=== PATIENT | female | born 1960 | race Caucasian/White ===

== ENCOUNTER 2018-08-12 17:57 | Inpatient (IN) | payer OTHER ==
[~2018-08-12 17:57] MED LIST: ADULT ONE DAI200 MCG PO; ALDACTONE25 MG PO; AMBIEN 10 MG TA10 MG PO; AMBIEN 5 MG TABL5 M1 PO; ATIVAN1 MG PO; BACTRIM DS TAB1 EACH PO; CIPRO250 M1 PO; CYCLOBENZAPRINE5 MG PO; CYMBALTA20 MG PO; CYMBALTA30 MG PO; DAIRY DIGES3000 UNI1 PO; DESYREL100 MG PO; DESYREL300 MG PO; DESYREL50 MG PO; DILAUDID 2 MG TA2 MG PO; FLAGYL500 MG PO; FLEXERIL PO; FOLIC ACID 1 MG1 M1 PO; HYDROCODON-ACE1 EAC7 PO; HYDROXYZINE HCL50 MG PO; HYDROXYZINE PO; IRON325 PO; KEFLEX500 MG PO; KLOR-CON 10 ER10 MEQ PO; LAMICTAL 25 MG25 M1 PO; LASIX 40 MG TAB40 M1 PO; LASIX 40 MG TAB40 M2 PO; LASIX 80 MG TAB80 MG PO; LEVOTHYROXIN0.112 M1 PO; LEVOTHYROXIN0.175 MG PO; LEVOTHYROXINE 0.15MG PO; LEVOTHYROXINE0.2 M1 PO; LITHIUM CARBON300 M3 PO; LITHIUM CARBON600 MG PO; LORATIDINE 10 M10 M1 PO; LOXAPINE10 MG PO; LOXAPINE25 MG PO; LUNESTA3 MG PO; MIDODRINE HCL 55 M1 PO; MIRALAX17 GM PO; NAPROSYN500 MG PO; NEURONTIN 300300 M1 PO; NIGHTTIME SLEEP50 MG PO; NORCO 5-325 TA1 EACH PO; ONDANSETRON ODT4 MG PO; OXCARBAZEPINE600 MG PO; OXYCODONE HCL15 MG PO; OXYCODONE HCL30 MG PO; OXYCONTIN10 M1 PO; PERCOCET 10-321 EACH PO; PERCOCET 5-3251 EACH PO; PHENERGAN 25 MG25 M1 PO; PHENERGAN25 MG RECTAL; PRILOSEC 20 MG20 MG PO; PROZAC; PROZAC40 MG PO; REGLAN 10 MG TA10 MG PO; REMERON15 M1 PO; REMERON30 M1 PO; REMERON45 MG PO; RESTORIL30 MG PO; SEROQUEL 25 MG25 M1 PO; SEROQUEL 50 MG50 MG PO; SEROQUEL XR 30300 M1 PO; SYNTHROID200 MCG PO; VITAMIN B-1100 M1 PO; XANAX 0.5 MG0.5 MG PO; XANAX XR2 MG PO; XARELTO15 MG PO; ZOFRAN ODT4 MG PO; ZOFRAN4 MG PO; ZOLOFT100 MG PO; [UNRECOGNIZED DRUG - OTHER] PO
--- NOTE | 2018-08-12 19:27 | NUR ---
1820: Direct admit to room 522-B via [facility] accomp by EMT transporters. Pt alert, oriented to x4, appropritate for age. Pt describes having suicidal thoughts of stabbing herself in the stomach due to financial issues and not keeping her house clean. Dr. Diaz notified of admit, new orders rec. Dr. Acosta paged to notify of admission, no return call at this time. Consents signed and witnessed, inventory sheet completed, security here to store valuables. Report to noc shift.
[2018-08-12 20:07] VITALS: BP 113/70
[2018-08-13 01:00] VITALS: BP 113/70
--- NOTE | 2018-08-13 04:11 | NUR ---
ASSUMED CARE @ 19:15. ASSESSMENT COMPLETE. A&OX4, DENIES SI AND HI AT THIS TIME. HRRR, LUNGS CTA ALL MEZA. ALLERGIES TO CONTRAST DYE, IODINE, MORPHINE. MEDICATION ORDERS ENTERED, AND HS MEDS GIVEN @ 23:30. PT SAYS SHE WILL NOT BE ABLE TO SLEEP WITHOUT BELSOMRA SLEEPING AID. AGREED TO LAY IN BED WITH THE LIGHTS OUT AND RELAX, EVEN IF NOT ABLE TO SLEEP. NOTED TO BE SLEEPING THROUGHOUT THE NOC. WILL CONTINUE TO MONITOR.
--- NOTE | 2018-08-13 06:24 | NUR ---
SLEPT 5 HOURS OVER NOC.
[2018-08-13 07:20] VITALS: BP 99/50
--- NOTE | 2018-08-13 10:06 | NUR ---
0700-900: Report rec from noc shift, care assumed. Pt lethargic, voices mild nausea and dizziness VS= Laying in bed=99/50 HR=56, sitting= 110/60, HR=62, tkormqyn=339/68, HR=60, results reported to Namrata MONTANA who is here to do initial admission assessment. Labs, medications and symptoms rev with GETTER OPERATOR. Pt encouraged to amublate to DR, and request assist if dizzines continues, pt to DR for a.m. meal, refused meal, requires frequent reminders to drink fluids. ABT tx's, Keflex and Bactrim orders discussed with GETTER OPERATOR, Keflex dc'd, will continue with Bactrim for UTI, no adverse reactions noted. Pt attended a.m. group in DR, no interaction, slept at table during entire group.
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
[2018-08-13 19:40] VITALS: BP 121/66
--- NOTE | 2018-08-13 21:03 | NUR ---
ASSUMED CARE OF THE PT AT 1914 PM. ALERT ET ORIENTED X 3. MAKES NEEDS KNOWN. WALKS WITH A STEADY GAIT. RATES HER ANXIETY A 10/05 AND A 10/05. DENIES SI AND HI CURRENTLY. DENIES A/V HALLUNICATIONS. WATCHING TV AT THIS TIME. WALKS WITH A STEADY GAIT. REMAINS ON 12 MINUTE CHECKS FOR HER SAFETY.
--- NOTE | 2018-08-14 03:24 | NUR ---
THE PT HAS BEEN SLEEPING MOST OF THE NOC SHIFT. DENIED PAIN EARLIER IN THE SHIFT. REMAINS ON 12 MINUTE CHECKS FOR HER SAFETY.
[2018-08-14 07:30] VITALS: BP 115/63
--- NOTE | 2018-08-14 07:45 | NUR ---
PT STATED SHE FEELS BETTER TODAY. A LITTLE NAUSEA. PT STATED PAIN TO LOWER BACK IS 9 ON 1-10 SCALE. PT STATED IT IS TO LOWER BACK, STARTS FROM ONE SIDE TO ANOTHER. PT STATED IF FEELS LIKE AN ACHE, OR STIFF JOINTS. PT STATED SHE STILL FEELS DIZZY ALL THE TIME. SHE THINKS IT IS FROM THE MEDS. PT STATED LAST BM 4 DAYS AGO. ENCOURAGED PT TO EAT LIGHT FOOD TODAY.
[2018-08-14 08:00] VITALS: BP 115/63
--- NOTE | 2018-08-14 08:34 | NUR ---
ADM ZOFRAN 4MG PO FOR NAUSEA. DID EAT SOME EGGS AND FRUIT.
[2018-08-14 10:54] LABS: URINE BILIRUBIN NEGATIVE (Negative); URINE BLOOD NEGATIVE (Negative); URINE CLARITY CLEAR; URINE COLOR YELLOW; URINE GLUCOSE-RANDOM* NEGATIVE (Negative); URINE KETONES NEGATIVE (Negative); URINE LEUKOCYTES-REFLEX TRACE (Negative); URINE NITRITE-REFLEX NEGATIVE (Negative); URINE PROTEIN (DIPSTICK) NEGATIVE (Negative); URINE UROBILINOGEN 0.2 E.U./dl (0.2-1.0)
--- NOTE | 2018-08-14 13:39 | NUR ---
ADM OXI IR 30MG PO FOR BACK PAIN OF 9 ON 1-10 SCALE.
--- NOTE | 2018-08-14 14:12 | NUR ---
Sw and pt met during the group time, since no pt attended. Pt reported that she slept better last night, but still was having some stomach issues. Pt was more alert today and was feeling hopeful. Sw inquired about her plans for the [facility] and she stated she wanted to go on a roadtrip to [facility] wiht her .
--- NOTE | 2018-08-14 16:53 | NUR ---
ADM ZOFRAN 4MG PO FOR PRE-DINNER. PT HAS NOT HAD EMESIS TODAY. PT HAS BEEN ABLE TO EAT MEALS WITHOUT GETTING NAUSEATED. PT HAS RESTED IN CHAIR IN DINNING ROOM AFTER PAIN MED TODAY.
[2018-08-14 20:15] VITALS: BP 122/72
--- NOTE | 2018-08-14 22:38 | EKG ---
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1960 Requested By: Namrata Yo Order Number: [id number] MD: Shawn Umanzor Measurements Intervals [place] Rate: 49 P: 45 ID: 211 QRS: 1 QRSD: 105 T: 35 QT: 470 QTc: 425 Interpretive Statements Sinus bradycardia Compared to ECG 06/10/2015 13:30:16 Sinus rhythm no longer present First degree AV block no longer present T-wave abnormality no longer present Electronically Signed On 08-14-2018 22:37:56 CDT by Shawn Umanzor [email or web address] ��������������������������������������������� <ELECTRONICALLY SIGNED> ���������������������������������������� By: Shawn Umanzor MD ��������������������������������������������� 08/14/18 2237 Shawn Umanzor MD /BLAYNE
--- NOTE | 2018-08-14 23:15 | NUR ---
ASSUMED CARE @ 19:15. A&O X4, HRRR, LUNGS CTA ALL MEZA, ABD NX4Q. DENIES SI, OR HI, SMILES AT TIMES DURING ASSESSMENT, REPORTS BEING MORE HOPEFUL OF THE FUTURE, BUT AT TIMES A LITTLE BLUE AND SAD. REPORTS BEING WORRIED ABOUT MONEY TO PAY TAXES ON HER PAWAN HOW TO LOOSE 10 POUNDS, AND HOW BAD HER HOUSE KEEPING LOOKS. REQUESTED PRN MEDS FOR 9/10 BACK PAIN. WILL CONTINUE TO MONITOR.
--- NOTE | 2018-08-15 05:52 | NUR ---
SLEPT 9.4 HOURS.
--- NOTE | 2018-08-15 05:55 | NUR ---
SLEPT 9.4 HOURS NOC.
[2018-08-15 07:30] VITALS: BP 104/65
--- NOTE | 2018-08-15 10:14 | NUR ---
ASSUMED PATIENT CARE AT 07:15. PATIENT UP IN D.R. AT THAT TIME, SITTING AT TABLE. ATE 100% OF BREAKFAST. SAT IN R.T. GROUP, NON-PARTICIPATORY, DROWSY. C/O CONSTIPATION, TOOK MIRALAX. HOWEVER, STATES THAT MIRALAXN IS NOT WORKING. ADDED THAT SHE WAS TAKING COLACE WHILE IN THE HOSPITAL, NOTED THAT NO COLACE IS ORDERED AT THIS TIME. NURSE WILL F.U. BY REQESTING NEW ORDER FOR COLACE. PATIENT GIVEN 4 OZ OF PRUNE JUICE BY THIS NURSE.
[2018-08-15 10:38] VITALS: BP 104/65
[2018-08-15 11:11] LABS: ABSOLUTE NEUTROPHILS 4.5 thou/uL (1.4-8.2); BASOPHILS 0.9 % (0.0-2.0); EOSINOPHILS 4.2 % (0.0-3.0); HEMATOCRIT 33.5 % (37.0-47.0); HEMOGLOBIN 10.3 gm/dL (12.0-15.0); MCH 22.8 pg (26.0-34.0); MCHC 30.8 g/dL (28.0-37.0); MONOCYTES 9.6 % (1.0-8.0); PLATELET COUNT 194 thou/uL (150-400); POLYS 70.3 % (36.0-66.0); RBC 4.53 mil/uL (4.20-5.00); RDW 17.6 % (10.5-14.5); WBC 6.4 thou/uL (4.0-11.0)
--- NOTE | 2018-08-15 14:44 | NUR ---
MIHAI left a voicemail for pt . MIHAI provided contact information, and asked if he could return the call. MIHAI will follow-up with pt family tomorrow.
[2018-08-15 19:34] VITALS: BP 114/72
[2018-08-15 23:26] VITALS: BP 114/72
--- NOTE | 2018-08-16 04:56 | NUR ---
PT QUIET AND ON THE EDGE OF THE GROUP. DOZING IN DAYROOM EARLY IN THE PM SHIFT. TOOK HS MEDS FOLLOWING SNACKS, INCLUDING LAXATIVE. REMAINS CONCERNED ABOUT CONSTIPATION, HOWEVER, BOWEL SOUNDS ARE ACTIVE. WENT TO ROOM AROUND 2230, AND SLEPT WELL THROUGH THE NIGHT.
[2018-08-16 07:42] VITALS: BP 95/57
--- NOTE | 2018-08-16 09:51 | NUR ---
[id number]: Report rec from [facility] shift, care assumed. Ambulatory in [place] and to DR, gait steady, flat affect, appropriate speech, softly spoken, oriented x3. Requested Xanax, pt updated on med changes on 08/15 for Xanax 1mg @ HS, pt states she really needs something for nerves. Attended morning therapy group, 100% participation. Denies suicidal thoughts or plan this a.m.
--- NOTE | 2018-08-16 17:09 | NUR ---
MIHAI and Dr. diaz met with the pt Stephen concerning pt care. Dr. diaz stated that he diagnosed the pt with Major Depression Disorder, and Bipolar II. Dr. Diaz recommended that continue care through primary psychiatrist Dr. Anne, and the [facility] program through [facility]. MIHAI was ab;e to schedule appointment. MIHAI recommended that intiate the community outreach through the [facility]. Dr. Diaz stated that will be ready to d/c on July at 3:30pm.
[2018-08-16 20:02] VITALS: BP 115/64
--- NOTE | 2018-08-16 23:24 | NUR ---
Pt requested prn ambien be restarted, BREAKFAST HOSTESS treasury consultant notified and new order for trazadone obtained. Pt notified.
--- NOTE | 2018-08-16 23:30 | NUR ---
Pt watching tv in day room. Pt smiling and direct eye contact when talking with staff. Compliant with hs meds and snack.
[2018-08-17 06:54] LABS: CALCIUM 8.5 mg/dL (8.5-10.1); POTASSIUM 4.9 mmol/L (3.5-5.1)
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
[2018-08-17 14:33] VITALS: BP 112/65
[2018-08-17 14:40] VITALS: BP 112/65
--- NOTE | 2018-08-17 16:37 | NUR ---
MIHAI schedule appointment with the pt primary psychiatrist Dr. Arana on August 19, 2018 at 2:30pm. MIHAI schedule appointment with Jarrett Gage on August 23, 2018 at 11:00am. for intensive outpatient therapy.
--- NOTE | 2018-08-17 16:57 | NUR ---
CONSTRICTED AFFECT WHILE IN GROUPS AND IN MILLEU BUT DID SMILE AND USE HUMOR DURING 1;1 INTERACTION WITH THIS RN. DID REPORT HAVING SUICIDAL THOUGHTS WHEN ASKED IF THERE WAS ANY TRIGGER OR PRECIPITANT STATES "WELL I'M SUPPOSED TO GO HOME TOMORROW AND I'M NOT FEELING ANY BETTER" HAS ATTENDED ALL GROUPS AND IS VERBAL WITH PROMPTING-SLIGHTLY MORE ANIMATED AND VERBAL. DOES REPORT CHRONIC LOW BACK PAIN RATED AN 8/9 ON 1-10 SCALE PRIOR TO RECEIVING SCHEDULED LYRICA 100MG AND OXY IR 30MGPOPRN AT 0845
[2018-08-17 19:31] VITALS: BP 139/73
--- NOTE | 2018-08-17 22:27 | NUR ---
Pt sitting in day room watching tv upon arrival to shift. Pt did make phone call to family. Pt compliant with hs meds and snack. Pt asked for ambien for sleep, as she did last night. Pt informed that she has trazadone ordered and that when oncpuja perales was called last night regarding ambien, the drs decision was not to continue the ambien as well as decrease xanax. Pt retired to bed and is reading. Pts affect was smiling, good eye contact, with staff interactions. rle edema remains.
--- NOTE | 2018-08-18 04:55 | NUR ---
Pt awakened this am and sat in dayroom to watch tv.
[2018-08-18] MEDS ORDERED: MIDODRINE HCL 55 M1 PO (09:40)
[2018-08-18] MEDS ORDERED: XARELTO20 MG PO (09:41)
[2018-08-18] MEDS ORDERED: IRON325 PO (09:41)
[2018-08-18] MEDS ORDERED: SPIRONOLACTONE25 M1 PO (09:41)
[2018-08-18] MEDS ORDERED: LYRICA 50 MG50 MG PO (09:42)
[2018-08-18] MEDS ORDERED: TRAZODONE HCL50 MG PO (09:43)
[2018-08-18] MEDS ORDERED: EFFEXOR XR75 MG PO (09:44)
[2018-08-18] MEDS ORDERED: K-DUR10 MEQ PO (09:44)
[2018-08-18] MEDS ORDERED: MIRALAX17 GM PO (09:45)
[2018-08-18] MEDS ORDERED: SYNTHROID100 MC1 PO (09:46)
[2018-08-18] MEDS ORDERED: UNICOMPLEX M TA1 TA1 PO (09:46)
[2018-08-18 11:05] VITALS: BP 90/56
[2018-08-18 12:00] VITALS: BP 90/56
--- NOTE | 2018-08-18 16:21 | NUR ---
PATIENT DISCHARGED HOME WITH . DEPARTED AT 1610 - ESCORTED DOWN TO FRONT OF BUILDING WITH VOLUNTEER AND PATIENT. PATIENT SIGNED ALL PAPERWORK DOCUMENTATION AND REVIEWED - UNDERSTOOD EXPLANATIONS. PATIENT VITALS STABLE AND PRESCRIPTIONS WRITTEN BY INCLUDED WITH HER PAPERWORK. ALL POSSESSIONS RETURNED AND CHECKED ALONG WITH PERSONNEL ITEMS FROM SAFE. PATIENT LEFT WITH ALL BELONGINGS INTACT.
--- NOTE | 2018-08-18 16:44 | NUR ---
Patient Name: DAVID NICHOLE Admission Date: 08/12/18 DISCHARGE PLAN: Pt will be discharge home with her . Care Assessment: Pt was assessed by Dr. Diaz, and diagnosed with Major Depression Disorder. Level II Assessment: None Transportation: Pt was transported by her Special Instructions/Notes: Pt will need to conintue coare with Dr. Joseph on August 19, 2018 at 2:30pm, and Php Program with Jarrett Gage on August 23, 2018 at 11:00am. DISCHARGE TO PLACEMENT: Home Facility: Phone: Fax: Address: [address] [place] [address] Contact Name: Stephen PCP: Psychiatrist: Jarrett Gage, and Dr. Arana
--- NOTE | 2018-08-21 23:58 | D ---
[facility] [place] [address] DISCHARGE SUMMARY Name: DAVID NICHOLE Room #: 522B-B [facility] IN M.R.#: [id number] Admission: 08/12/18 ������������������ Attend Phys: Daryl Diaz DO Discharge: 08/18/18 ������������������ Date of : 64 Report #: [id number] THIS REPORT FOR: //name// CC: Daryl Diaz FAM physician/PCP DATE OF SERVICE: 08/18/2018 INPATIENT PSYCHIATRIC DISCHARGE SUMMARY ATTENDING PHYSICIAN: Daryl Diaz DO. BAR FINISH OPERATOR: Daryl Peters M.D. DISCHARGE DIAGNOSES: Major depressive disorder, recurrent, severe degree, improved. The patient has several medical comorbidities including hypercoagulable state; history of deep venous thrombosis, is on a thrombin inhibitor; hypothyroidism, controlled; hypertension, controlled; insomnia and chronic pain syndrome with likely a degree of opioid dependence. DIET: She is on a heart healthy, low-sodium diet due to edema. REASON FOR ADMISSION: Suicidal ideation. LABORATORY DATA: Labs this admission, 08/15/2018, CBC, H and H 10.3 and 33.5, white count 6.4 and platelet count 194,000. Electrolytes within normal limits, except chloride of 110. Her TSH was notable at 12.934. Calcium was 8.5, glucose 93 and estimated GFR 57. Toxicology, she had an initial lithium level of 1.4, followup of 1.2; this was discontinued the weekend she was admitted due to concern for side effects. HOSPITAL COURSE: We had a family meeting with her . The patient was initially somewhat reluctant to discuss details. Apparently, she has been known to this facility for quite time since 2009 for a stroke. She reports her goes to work. She is not doing a lot. We would like her to do PHP. She is scheduled for PHP at the [facility] next 08/23/2018. She also sees Dr. Skaggs at [facility] and has an appointment this Wednesday. DISCHARGE MEDICATIONS: Are as follows: Midodrine 5 mg p.o. 3 times a day, ferrous sulfate 325 mg p.o. daily for supplementation for hypertension; Xarelto 20 mg p.o. at bedtime; spironolactone 25 mg p.o. daily for hypertension; pregabalin 100 mg p.o. b.i.d. for pain; trazodone 50 mg p.o. at bedtime p.r.n. for insomnia; venlafaxine 150 mg p.o. daily; potassium chloride 10 mEq p.o. daily for supplementation; polyethylene glycol 17 g p.o. b.i.d. for constipation; levothyroxine 300 mcg p.o. daily for hypothyroidism, should [address] [address] DISCHARGE SUMMARY Name: DAVID NICHOLE Room #: 522B-B [facility] IN M.R.#: [id number] Admission: 08/12/18 ������������������ Attend Phys: Daryl Diaz DO Discharge: 08/18/18 ������������������ Date of : 64 Report #: [id number] recheck TSH in 1 month due to high reading and multivitamin p.o. daily. Also, she can continue oxycodone, should not exceed 90 mg per day. Interestingly, I think, she did have ER regimen available at home with 15 mg oral q. 6h. Oxycodone frequency. I did not give her a narcotic prescription, I should add. Also during this admission, Xanax was discontinued and thought to be contributing to falls. PHYSICAL EXAMINATION: VITAL SIGNS: On the day of discharge are as follows: Temperature 36.9, pulse 68, respirations 16 and BP 90/56. MUSCULOSKELTEL EXAMINATION: Normal gait and station. MENTAL STATUS EXAMINATION: This is a well-developed, well-nourished female, appearing normal for stated age. Attention intact. Concentration intact. Speech is normal rate, volume and tone. Thought process linear and goal directed. Thought content, focused on discharge. No psychomotor agitation. No psychomotor retardation. No auditory, visual or tactile hallucinations. Denied suicidal intent or plan. Denied hopelessness or helplessness. Denied homicidal intent or plan. Memory not formally tested. Insight fair to limited. Judgment fair. Fund of knowledge below average. PROGNOSIS: Prognosis for this patient is fair to guarded and will depend on her degree of compliance, such as therapeutic involvement as well as in all measures. Also, the patient should abstain from alcohol, tobacco or recreational drugs. ��������������������������������������������� <ELECTRONICALLY SIGNED> ���������������������������������������� By: Daryl Diaz DO ��������������������������������������������� 08/21/18 2358 0001 0251 Daryl Diaz DO /nt
== END 2018-08-18 16:10 | disposition home or self-care (01) | DRG 885 ==
LOC: SBH 17:57 → ENTRNSPT 08-18 15:53 → SBH 08-18 16:10
PROVIDERS: Hospitalist; Internal Medicine; ADMIT Psychiatry & Neurology Psychiatry
DX: F33.9 Major depressive disorder, recurrent, unspecified (principal); F11.20 Opioid dependence, uncomplicated; R45.851 Suicidal ideations; D68.59 Other primary thrombophilia; F31.9 Bipolar disorder, unspecified; M54.5 Low back pain; G89.29 Other chronic pain; E03.9 Hypothyroidism, unspecified; G47.00 Insomnia, unspecified; I10 Essential (primary) hypertension; Z79.899 Other long term (current) drug therapy; Z90.49 Acquired absence of other specified parts of digestive tract; Z91.041 Radiographic dye allergy status; Z88.5 Allergy status to narcotic agent; Z91.013 Allergy to seafood
CPT/HCPCS: 10880

== ENCOUNTER 2020-10-10 13:47 | Emergency (ER) | payer OTHER ==
[~2020-10-10] VITALS: Ht 167.6 cm; Wt 81.7 kg
[~2020-10-10 13:47] MED LIST changes: +EFFEXOR XR75 MG PO; +K-DUR10 MEQ PO; +LYRICA 50 MG50 MG PO; +SPIRONOLACTONE25 M1 PO; +SYNTHROID100 MC1 PO; +TRAZODONE HCL50 MG PO; +UNICOMPLEX M TA1 TA1 PO; +XARELTO20 MG PO
[2020-10-10] MEDS ORDERED: TRAMADOL 50 MG50 MG PO (15:44)
[2020-10-10 15:58] VITALS: BP 97/49
== END 2020-10-10 16:16 | disposition home or self-care (01) ==
LOC: ER 13:47
DX: S22.31XA Fracture of one rib, right side, initial encounter for closed fracture (principal); S80.01XA Contusion of right knee, initial encounter; G89.29 Other chronic pain; Z98.890 Other specified postprocedural states; Z91.013 Allergy to seafood; W01.198A Fall on same level from slipping, tripping and stumbling with subsequent striking against other object, initial encounter; Y93.89 Activity, other specified; Y92.89 Other specified places as the place of occurrence of the external cause; Y99.8 Other external cause status; Z88.5 Allergy status to narcotic agent

== ENCOUNTER 2021-01-09 12:41 | Inpatient (IN) | payer OTHER ==
[~2021-01-09] VITALS: Ht 167.6 cm; Wt 86.5 kg
[~2021-01-09 12:41] MED LIST changes: +TRAMADOL 50 MG50 MG PO
[2021-01-09 12:51] VITALS: BP 117/59
--- NOTE | 2021-01-09 13:25 | EKG ---
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1960 Requested By: Coral López Order Number: [id number] MD: Marlon Flores Measurements Intervals [place] Rate: 63 P: -4 [place]: 191 QRS: -16 QRSD: 101 T: 41 QT: 442 QTc: 453 Interpretive Statements Sinus rhythm Abnormal R-wave progression, early transition Left ventricular hypertrophy Compared to ECG 08/13/2018 09:07:22 Left ventricular hypertrophy now present Sinus bradycardia no longer present Electronically Signed On 01-09-2021 13:24:57 CDT by Marlon Flores [email or web address] <ELECTRONICALLY SIGNED> By: Marlon Flores MD, [facility] 01/09/21 1324 1302 1302 Marlon Flores MD, FACC /EPI
[2021-01-09 14:33] LABS: HEMATOCRIT 20.9 % (37.0-47.0); MCH 18.4 pg (26.0-34.0); MCHC 30.9 g/dL (28.0-37.0); MCV 59.4 fL (80.0-100.0); PLATELET COUNT 157 thou/uL (150-400); RBC 3.52 mil/uL (4.20-5.00); RDW 16.8 % (10.5-14.5); WBC 3.4 thou/uL (4.0-11.0)
[2021-01-09 14:34] LABS: HEMOGLOBIN 6.5 gm/dL (12.0-15.0)
[2021-01-09 14:45] LABS: CALCIUM 8.5 mg/dL (8.5-10.1); CREATININE 1.4 mg/dL (0.6-1.0); POTASSIUM 3.9 mmol/L (3.5-5.1)
[2021-01-09 14:55] LABS: ALBUMIN 3.1 g/dL (3.4-5.0); TOTAL BILIRUBIN 1.6 mg/dL (0.2-1.0); TOTAL PROTEIN 5.4 g/dL (6.4-8.2)
[2021-01-09 15:19] LABS: ABSOLUTE NEUTROPHILS 1.9 thou/uL (1.4-8.2); ANISOCYTOSIS 1+; HYPOCHROMASIA 2+; MICROCYTES 1+
--- NOTE | 2021-01-09 16:36 | NUR ---
A LEFT UPPER ARM MIDLINE WAS PLACED PER PATIENT REQUEST AND PER HOSPITAL POLICY. THE LINE WAS TRIMMED TO 15CM AND ADVANCED WITHOUT DIFFICULTY. THE LINE WAS SECURED AND RELEASED FOR USE
[2021-01-09] MEDS ORDERED: OXYCONTIN30 MG PO (16:51)
[2021-01-09] MEDS ORDERED: SOTALOL 120 MG120 M1 PO (16:51)
[2021-01-09] MEDS ORDERED: BELSOMRA20 MG PO (16:51)
[2021-01-09] MEDS ORDERED: HYDROXYZINE HCL50 MG PO (16:52)
[2021-01-09] MEDS ORDERED: REMERON SOLTAB45 MG PO (16:52)
[2021-01-09] MEDS ORDERED: XARELTO20 MG PO (16:53)
[2021-01-09] MEDS ORDERED: ZANAFLEX4 M2 PO (16:53)
[2021-01-09] MEDS ORDERED: CLONAZEPAM 1 MG1 M1 PO (16:53)
[2021-01-09] MEDS ORDERED: ABILIFY15 MG PO (16:54)
[2021-01-09] MEDS ORDERED: SPIRONOLACTONE50 MG PO (16:54)
[2021-01-09 17:37] VITALS: BP 83/40
[2021-01-09 17:59] VITALS: BP 84/54
[2021-01-09 22:02] LABS: HEMATOCRIT 20.9 % (37.0-47.0)
[2021-01-09 22:12] LABS: HEMOGLOBIN 6.2 gm/dL (12.0-15.0)
[2021-01-10] VITALS (41 sets, daily range): BP systolic 77–111; BP diastolic 36–61
--- NOTE | 2021-01-10 | NUR ---
PT TX FROM 4 SOUTH TO ICU FOR A LOW HGB AWAKE AND ALERT MEURO INTACT LUNGS CLEAR UP TO COMMODE VOIDED 400 CC DIMPLE URINE, SBP 88/50/ AWAITING BLODD FROM [facility]
--- NOTE | 2021-01-10 00:08 | NUR ---
ADMISSION ASSESSMENT COMPLETED. PT ALERT AND ORIENTED. WITH ANEMIA. REPEAT HGB OF 6.2. PT HAS CHRONIC BACK PAIN - FENTANYL GIVEN. SR WITH FIRST DEGREE ON TELEMETRY. BP LOW, PT REPORTS MILD DIZZINESS. NPO AND SHE HAS BEEN COMPLAINING AND WANTING FOOD, BLOOD BANK INFORMED THIS NURSE THAT BLOOD WILL NOT BE AVAILABLE FOR ANOTHER 4 HRS-PT REQUIRES WASHED BLOOD CELLS. INFO COMMUNICATED TO MIKAEL CAMPBELL, ORDERD RECEIVED TO TRANSFER PT TO [facility]. REPORT CALLED TO DAVID, SITE ACQUISITION SPECIALIST, PT MOVED AT AROUND 2345HRS.
--- NOTE | 2021-01-10 06:30 | NUR ---
#1 UNIT OF PACKED CELLS INFUSED. PT AWAKE AND ALERT REMAINS NPO SINUS RHYTHM PROGRESSING TOWARD GOALS
--- NOTE | 2021-01-10 07:30 | NUR ---
ORDERS RECEIVED FOR EVAL AND TREAT HOWEVER Pt TRANSFERRED TO ICU LAST NIGHT. WILL PLACE ON HOLD AND AWAIT NEW ORDERS WHEN APPROPRIATE
--- NOTE | 2021-01-10 07:32 | NUR ---
CHRISTOPHER NOTE: ORDERS RECEIVED FOR O.T. EVAL AND TREAT. PT TRANSFERRED TO ICU OVERNIGHT. WILL PLACE PT ON HOLD AND AWAIT NEW ORDERS PT BECOMES MORE MEDICALLY STABLE. SEE Nini.Dennis WHITE FOR DETAILS.
[2021-01-10 07:42] LABS: HEMOGLOBIN 6.7 gm/dL (12.0-15.0)
[2021-01-10 07:44] LABS: HEMATOCRIT 21.8 % (37.0-47.0)
--- NOTE | 2021-01-10 07:58 | NUR ---
RN RECEIVED REPORT FROM NOC RN, CALRIFICATION FOR 2ND UNIT OF BLOOD NEEDED, HGB REDRAW AT THIS TIME IS 6.7, PER PROTOCOL PT IS NEEDING THE SECOND UNIT AND PER ER MD'S ORDER SECOND UNIT OF ORDER IS TO BE INFUSED, RN CALLED THE BLOOD BANK TO VERIFY THERE IS A UNIT ON STANDBY PER PT REQUIRES SPECIALIZED UNIT, THERE IS A UNIT READY, RN TO GO PICK IT UP AND INFUSE SOON POSSIBLE
--- NOTE | 2021-01-10 10:49 | 2DMMODE ---
[facility] [place] [address] 2 D/M-MODE ECHOCARDIOGRAM Name: DAVID NICHOLE Room #: 247-P ADM IN M.R.#: [id number] Admission: 01/09/21 Attend Phys: Raz Snell MD Discharge: Date of : 64 Report #: [id number] THIS REPORT FOR: cc: Andi Atkins MD, Christopher B. MD Park, Jin S. MD ~ APPROVED REPORT Study performed: 01/10/2021 10:10:50 EXAM: Comprehensive 2D, Doppler, and color-flow Echocardiogram Patient Location: ICU Room #: 247 Status: routine BSA: 1.84 HR: 65 bpm BP: 87/43 mmHg Rhythm: NSR Other Information Study Quality: Good Indications Short of breath, chest pain, abnormal ekg. Hx: PAF, CHF, hypotension. 2D Dimensions RVDd: 38.48 mm IVSd: 10.17 (7-11mm) LVOT Diam: 19.73 (18-24mm) LVDd: 41.21 mm PWd: 9.10 (7-11mm) LVDs: 26.90 (25-40mm) Aortic Root: 33.79 mm Volumes Left Atrial Volume (Systole) Single Plane 4CH: 63.06 mL Single Plane 2CH: 70.27 mL LA ESV Index: 39.00 mL/m2 Aortic Valve AoV Peak Robinson.: 1.82 m/s AO Peak Gr.: 13.26 mmHg LVOT Max P.70 mmHg LVOT Max V: 1.39 m/s NOHEMI Vmax: 2.33 cm2 [facility] [address] [address] 2 D/M-MODE ECHOCARDIOGRAM Name: DAVID NICHOLE Room #: 247-P [facility] IN .R.#: [id number] Admission: 01/09/21 Attend Phys: Emiliano Bravo Discharge: Date of : 64 Report #: [id number] Mitral Valve E/A Ratio: 1.7 MV Decel. Time: 144.75 ms MV E Max Robinson.: 0.98 m/s MV A Robinson.: 0.57 m/s MV PHT: 41.98 ms IVRT: 62.28 ms Pulmonary Valve PV Peak Robinson.: 1.01 m/s PV Peak Gr.: 4.12 mmHg Pulmonary Vein P Vein S: 0.81 m/s P Vein D: 0.60 m/s P Vein S/D Ratio: 1.35 Tricuspid Valve TR Peak Robinson.: 2.66 m/s TR Peak Gr.: 28.21 mmHg Left Ventricle The left ventricle is normal size. There is normal LV segmental wall motion. There is normal left ventricular wall thickness. Left ventricular systolic function is normal. LVEF is 65%. The left ventricular diastolic function is normal. Right Ventricle The right ventricle is normal size. The right ventricular systolic function is normal. Atria Left atrium is mildly dilated. The right atrium size is normal. Aortic Valve The aortic valve is normal in structure. No aortic regurgitation is present. There is no aortic valvular stenosis. Mitral Valve The mitral valve is normal in structure. Trace mitral regurgitation. No evidence of mitral valve stenosis. Tricuspid Valve The tricuspid valve is normal in structure. Mild tricuspid regurgitation. Estimated PAP is 28mmHg plus the RAP. [facility] [address] [place] [address] 2 D/M-MODE ECHOCARDIOGRAM Name: DAVID NICHOLE Room #: [facility]- ADM IN M.R.#: [id number] Admission: 01/09/21 Attend Phys: Emiliano Bravo Discharge: Date of : 64 Report #: [id number] Pulmonic Valve Pulmonic valve is not well visualized. Great Vessels The aortic root is normal in size. Ascending aorta is not well visualized. IVC is not well visualized. Pericardium There is no pericardial effusion. <Conclusion> The left ventricle is normal size. There is normal left ventricular wall thickness. Left ventricular systolic function is normal. The right ventricle is normal size. Left atrium is mildly dilated. The aortic valve is normal in structure. Trace mitral regurgitation. Mild tricuspid regurgitation. Estimated PAP is 28mmHg plus the RAP. <ELECTRONICALLY SIGNED> By: Kye Andre MD 01/10/21 1048 D: 10/8 104 Kye Andre MD /INF
--- NOTE | 2021-01-10 11:39 | NUR ---
chart review. discussed during los and unit rounds. Visited with radha at bedside. Intro to cm and dcp. She lives at home wit her pato. Independent when she is feeling well. No dme. manage own medication. drives vehicle. Been to [facility] in the past for weakness. HH in the past and would use [facility] if needed. No anticipated dc over the weekend, possible ready .
[2021-01-10 13:42] LABS: HEMATOCRIT 28.1 % (37.0-47.0); HEMOGLOBIN 8.6 gm/dL (12.0-15.0)
[2021-01-10 16:40] LABS: HEMATOCRIT 25.2 % (37.0-47.0)
[2021-01-11 00:55] LABS: HEMOGLOBIN 7.2 gm/dL (12.0-15.0)
[2021-01-11 05:30] VITALS: BP 100/62
--- NOTE | 2021-01-11 06:38 | NUR ---
ASSUMED PT CARE AT 1900.PT ALERT WITH A FLAT EFFECT AT SHIFT CHANGE.PT C/O PAIN,MNAGED WITH MED.PT UP WITH SBA TO THE TOILET.PT WORRIED THAT HGB IS NOT BETTER.PT CONT IN IVF ORDERED.PT RESTING ON HER BED AT THIS TIME.CALL LIGHT WITHIN REACH.
[2021-01-11 07:23] VITALS: BP 86/52
[2021-01-11 11:12] VITALS: BP 97/52
[2021-01-11 11:24] LABS: ABSOLUTE RETIC COUNT 0.0431 10^6/uL; HEMATOCRIT 23.5 % (37.0-47.0); HEMOGLOBIN 7.2 gm/dL (12.0-15.0); OBSERVED RETIC COUNT 1.2 % (0.6-2.6)
[2021-01-11 11:39] LABS: % SATURATION 51 % (20-39); IRON 126 ug/dL (50-170); TIBC 248 ug/dL (250-450)
[2021-01-11 12:06] LABS: FERRITIN 17 ng/mL (8-252)
[2021-01-11 15:25] VITALS: BP 104/56
[2021-01-11 17:16] LABS: CALCIUM 8.2 mg/dL (8.5-10.1); CREATININE 1.1 mg/dL (0.6-1.0); POTASSIUM 3.5 mmol/L (3.5-5.1)
--- NOTE | 2021-01-11 18:16 | NUR ---
ASSESSMENT CHARTED - MEDS PER MAY. PT GIVEN FENTANYL X 3 DOSES FOR CO'S OF BACK PAIN WITH MOD RELIEF. MIDRONE INCREASED TO 10 MGS - STOOL SAMPLE SENT TO LAB ORDERED. PT TO RECEIVE 2 UNITS OF PRBC'S THIS EVEINING - BLOOD REQUIRING TO BE "WASHED" PRIOR TO BEING GIVEN. PT UP TO THE BATHROOM - STBY ASSIST. PAULETTE DIET AND FLUIDS. NO CO'S OF NAUSEA. APPEARS TO BE COMFORTABLY AT THE PRESENT TIME.
[2021-01-11 19:59] VITALS: BP 102/60
[2021-01-11 21:02] VITALS: BP 107/58; BP 108/58; BP 118/59
[2021-01-12 00:06] VITALS: BP 106/56; BP 106/57; BP 115/59
[2021-01-12 03:18] VITALS: BP 103/54
[2021-01-12 07:17] VITALS: BP 110/65
--- NOTE | 2021-01-12 08:25 | NUR ---
PT AMBULATING TO BATHROOM INDEPENDENTLY AND IS TOLERATING FAIR. FENTANYL PROVIDING PAIN RELIEF. COMPAZINE PROVIDING NAUSEA RELIEF. 2 UNITS PRBC TRANSFUSED. RESTING COMFORTABLY. NO NEEDS VOICED. CALL LIGHT WITHIN REACH. FREQUENT OBSERVATION.
[2021-01-12 10:09] LABS: HEMATOCRIT 31.5 % (37.0-47.0)
[2021-01-12 10:12] LABS: HEMOGLOBIN 9.8 gm/dL (12.0-15.0)
[2021-01-12 11:11] VITALS: BP 115/70
[2021-01-12 11:15] LABS: CALCIUM 8.5 mg/dL (8.5-10.1); POTASSIUM 3.5 mmol/L (3.5-5.1)
[2021-01-12 15:16] VITALS: BP 103/69
--- NOTE | 2021-01-12 20:00 | NUR ---
ASSESSMENT CHARTED - MEDS PER MAY - GIVEN COMPAZINE THIS AM FOR CO'S OF NAUSEA - FENTANYL X 3 DOSES FOR CO'S OF PAIN WITH MOD EFFECT. HEAM THIS AM 9.8. NO BLOOD REQUIRED THIS SHIFT. PT REFUSED ALL TRAYS. UP TO THE BATHROOM INDEPENDANTLY - STARTED ON FLUIDS ORDERED THIS AFTERNOON. NO CO'S AT THE PRESENT TIME.
[2021-01-12 20:17] VITALS: BP 123/70
--- NOTE | 2021-01-13 01:19 | NUR ---
PT AMBULATING TO BATHROOM INDEPENDENTLY AND IS TOLERATING FAIR. FENTANYL PROVIDING PAIN RELIEF. COMPAZINE PROVIDING NAUSEA RELIEF. RESTING COMFORTABLY. NO NEEDS VOICED. CALL LIGHT WITHIN REACH. FREQUENT OBSERVATION.
[2021-01-13 03:50] VITALS: BP 113/59
[2021-01-13 09:25] VITALS: BP 105/61
[2021-01-13 10:08] LABS: HEMATOCRIT 30.1 % (37.0-47.0); HEMOGLOBIN 9.3 gm/dL (12.0-15.0); MCH 21.7 pg (26.0-34.0); MCHC 30.8 g/dL (28.0-37.0); MCV 70.4 fL (80.0-100.0); RBC 4.27 mil/uL (4.20-5.00); RDW 25.9 % (10.5-14.5); WBC 5.1 thou/uL (4.0-11.0)
--- NOTE | 2021-01-13 12:22 | NUR ---
ORDERS RECEIVED FOR PT EVAL AND TREAT. Pt LIVES W/ , DRIVES, USES NO AD FOR GAIT. Pt W/ FLAT AFFECT. NO N/T OR PAIN. Pt HAS BEEN GETTING UP AD RONALD AND RN CONFIRMED. Pt DENIES PT NEEDS AT THIS TIME. IF STATUS CHANGES PRIOR TO D/C, PT CAN RETURN FOR FORMAL EVALUATION. ANTICIPATE NO NEEDS FOR D/C AT THIS TIME.
[2021-01-13] MEDS ORDERED: MIDODRINE HCL 55 M1 PO (12:24)
[2021-01-13] MEDS ORDERED: PROTONIX40 M4 PO (12:24)
[2021-01-13] MEDS ORDERED: ENOXAPARIN120 MG/0.8 SUBQ (12:24)
[2021-01-13 13:21] VITALS: BP 111/59
[2021-01-13] MEDS ORDERED: TYLENOL ARTHRI650 MG PO (14:00)
[2021-01-13 14:16] VITALS: BP 111/59
--- NOTE | 2021-01-13 15:07 | NUR ---
VARIANCE NOTE: ORDERS RECEIVED FOR O.T. EVAL AND TREAT. MET W/ PT WHO STATES, AND RN CONFIRMS, HAS BEEN UP AD RONALD, NO DME. PT STATES ONLY CONCERN FOR RETURNING HOME IS 8 MARY HOUSE, AND TIRING DURING COOKING. DISCUSSED W/ PT ENERGY CONSERVATION METHODS/ADAPTED COOKING TASK FOR RECOVERY TIME. ALSO PROVIDED PT W/ ENERGY CONSERVATION HANDOUT, PT ANTICIPATES D/C TODAY. PLEASE RE-CONSULT IF ANY FURTHER O.T. NEEDS ARISE. THANK YOU.
[2021-01-13 16:00] VITALS: BP 117/64
--- NOTE | 2021-01-13 18:03 | NUR ---
PATIENT PROVIDED WITH DISCHARGE INSTRUCTIONS. QUESTIONS AND CONCERNS WERE ADDRESSED. IV ACCESSS AND TELELETRY DISCONINUED. AWAITING FOR TO ARRIVE TO PROVIDE TRANSPORTATION HOME. WILL TRANSPORT PATIENT VIA WHEELCHAIR ONCE RIDE ARRIVES.
== END 2021-01-13 18:57 | disposition home or self-care (01) | DRG 811 ==
LOC: ER 12:41 → EROBS 15:01 → 2N 15:01 → 4S 18:00 → ICU 18:59 → 2N 01-10 18:15
PROVIDERS: Emergency Medicine; Nurse Practitioner Adult Health; ADMIT Hospitalist; ATTEND Hospitalist
DX: D56.1 Beta thalassemia (principal); R57.1 Hypovolemic shock; N17.0 Acute kidney failure with tubular necrosis; K92.2 Gastrointestinal hemorrhage, unspecified; I50.32 Chronic diastolic (congestive) heart failure; E87.0 Hyperosmolality and hypernatremia; I24.8 Other forms of acute ischemic heart disease; G89.29 Other chronic pain; Z20.822 Contact with and (suspected) exposure to COVID-19; M54.50 Low back pain, unspecified; F31.9 Bipolar disorder, unspecified; I95.89 Other hypotension; E03.9 Hypothyroidism, unspecified; D72.819 Decreased white blood cell count, unspecified; N18.9 Chronic kidney disease, unspecified; I48.0 Paroxysmal atrial fibrillation; Z90.49 Acquired absence of other specified parts of digestive tract; Z86.718 Personal history of other venous thrombosis and embolism; Z88.6 Allergy status to analgesic agent; Z91.041 Radiographic dye allergy status; Z91.013 Allergy to seafood; Z83.3 Family history of diabetes mellitus; Z80.3 Family history of malignant neoplasm of breast; Z23 Encounter for immunization; I25.89 Other forms of chronic ischemic heart disease
CPT/HCPCS: 10081; 10100; 27000; 85076

== ENCOUNTER 2021-01-20 12:20 | Emergency (ER) | payer OTHER ==
[~2021-01-20] VITALS: Ht 167.6 cm; Wt 72.6 kg
[~2021-01-20 12:20] MED LIST changes: +ABILIFY15 MG PO; +BELSOMRA20 MG PO; +CLONAZEPAM 1 MG1 M1 PO; +ENOXAPARIN120 MG/0.8 SUBQ; +OXYCONTIN30 MG PO; +PROTONIX40 M4 PO; +REMERON SOLTAB45 MG PO; +SOTALOL 120 MG120 M1 PO; +SPIRONOLACTONE50 MG PO; +TYLENOL ARTHRI650 MG PO; +ZANAFLEX4 M2 PO
[2021-01-20] MEDS ORDERED: BELSOMRA20 MG PO (12:42)
[2021-01-20] MEDS ORDERED: HYDROXYZINE PAM50 MG PO (12:43)
[2021-01-20] MEDS ORDERED: CLONAZEPAM2 MG PO (12:43)
[2021-01-20] MEDS ORDERED: LEVOTHYROXINE300 MCG PO (12:43)
[2021-01-20] MEDS ORDERED: BUMEX2 MG PO (12:44)
[2021-01-20 14:52] LABS: HEMATOCRIT 31.1 % (37.0-47.0); MCH 21.9 pg (26.0-34.0); MCHC 32.1 g/dL (28.0-37.0); MCV 68.2 fL (80.0-100.0); PLATELET COUNT 107 thou/uL (150-400); RBC 4.57 mil/uL (4.20-5.00); RDW 27.2 % (10.5-14.5); WBC 4.1 thou/uL (4.0-11.0)
[2021-01-20 14:53] LABS: ALBUMIN 2.8 g/dL (3.4-5.0); CALCIUM 8.5 mg/dL (8.5-10.1); CREATININE 1.6 mg/dL (0.6-1.0); DIRECT BILIRUBIN 0.3 mg/dL (<0.1-0.2); TOTAL BILIRUBIN 1.1 mg/dL (0.2-1.0); TOTAL PROTEIN 5.9 g/dL (6.4-8.2)
[2021-01-20 15:06] LABS: POTASSIUM 2.8 mmol/L (3.5-5.1)
[2021-01-20 15:37] LABS: ANISOCYTOSIS 1+; HYPOCHROMASIA 1+; MICROCYTES 1+
[2021-01-20 17:54] VITALS: BP 103/63
== END 2021-01-20 18:30 | disposition home or self-care (01) ==
LOC: ER 12:20
PROVIDERS: Student in an Organized Health Care Education/Training Program
DX: I95.1 Orthostatic hypotension (principal); Z20.822 Contact with and (suspected) exposure to COVID-19; R53.83 Other fatigue; N18.9 Chronic kidney disease, unspecified; I50.9 Heart failure, unspecified; E03.9 Hypothyroidism, unspecified; Z79.899 Other long term (current) drug therapy; Z88.5 Allergy status to narcotic agent; Z91.041 Radiographic dye allergy status; Z91.02 Food additives allergy status; Z91.013 Allergy to seafood

== ENCOUNTER 2021-04-02 14:21 | Emergency (ER) | payer OTHER ==
[~2021-04-02] VITALS: Ht 167.6 cm; Wt 69.4 kg
[~2021-04-02 14:21] MED LIST changes: +BUMEX2 MG PO; +CLONAZEPAM2 MG PO; +HYDROXYZINE PAM50 MG PO; +LEVOTHYROXINE300 MCG PO
[2021-04-02 14:34] VITALS: BP 106/58
[2021-04-02 15:23] LABS: URINE BILIRUBIN NEGATIVE (Negative); URINE BLOOD TRACE (Negative); URINE CLARITY CLOUDY; URINE COLOR YELLOW; URINE GLUCOSE-RANDOM* NEGATIVE (Negative); URINE KETONES NEGATIVE (Negative); URINE NITRITE-REFLEX NEGATIVE (Negative); URINE PROTEIN (DIPSTICK) NEGATIVE (Negative); URINE UROBILINOGEN 0.2 E.U./dl (0.2-1.0)
[2021-04-02 15:32] LABS: URINE LEUKOCYTES-REFLEX 3+ (Negative)
[2021-04-02 15:47] LABS: BACTERIA-REFLEX >30 Many /HPF (None Seen); CASTS None Seen /LPF (None Seen); CRYSTALS None Seen /LPF (None Seen); SQUAMOUS 4-10 Moderate /LPF (0-3); URINE RBC 1-2 Rare /HPF (NONE SEEN); URINE WBC-REFLEX >25 Many /HPF (0-5)
[2021-04-02 18:02] LABS: HEMATOCRIT 35.4 % (37.0-47.0); MCH 20.7 pg (26.0-34.0); MCV 66.6 fL (80.0-100.0); PLATELET COUNT 183 thou/uL (150-400); RBC 5.31 mil/uL (4.20-5.00); RDW 15.9 % (10.5-14.5); WBC 4.8 thou/uL (4.0-11.0)
[2021-04-02 18:08] LABS: CALCIUM 9.3 mg/dL (8.5-10.1); CREATININE 1.3 mg/dL (0.6-1.0); POTASSIUM 3.4 mmol/L (3.5-5.1)
[2021-04-02 18:23] LABS: ALBUMIN 3.4 g/dL (3.4-5.0); TOTAL BILIRUBIN 0.9 mg/dL (0.2-1.0); TOTAL PROTEIN 6.1 g/dL (6.4-8.2)
[2021-04-02 18:36] LABS: ABSOLUTE NEUTROPHILS 3.2 thou/uL (1.4-8.2); ANISOCYTOSIS 1+; ATYPICAL LYMPHS 4 %; HYPOCHROMASIA 2+; METAMYELOCYTES 1 %; POIKILOCYTOSIS 2+
[2021-04-02] MEDS ORDERED: NORCO5 PO (18:49)
[2021-04-02] MEDS ORDERED: CEPHALEXIN500 MG PO (18:49)
[2021-04-02] MEDS ORDERED: ZOFRAN ODT4 MG PO (18:49)
== END 2021-04-02 19:27 | disposition home or self-care (01) ==
LOC: ER 14:21
PROVIDERS: Nurse Practitioner
DX: R10.31 Right lower quadrant pain (principal); E03.9 Hypothyroidism, unspecified; N18.9 Chronic kidney disease, unspecified; I50.9 Heart failure, unspecified; Z79.899 Other long term (current) drug therapy; Z88.6 Allergy status to analgesic agent; Z91.041 Radiographic dye allergy status; Z91.02 Food additives allergy status; Z91.013 Allergy to seafood